=== PATIENT | female | born 1995 | race Caucasian/White ===

== ENCOUNTER 2022-01-14 00:01 | Inpatient (IN) | payer OTHER ==
--- NOTE | 2022-01-14 04:50 | NUR ---
0110 COVID 19 SWAB DONE TO BOTH NARES AND SENT TO IN HOUSE LAB.
--- NOTE | 2022-01-15 11:40 | PR ---
[facility] [address] [facility] [place], [place] [address] Signed Progress Notes IP Datetime Report Generated by CPN: 01/15/2022 11:40 PROGRESS NOTES: [id number] VITAL SIGNS: [id number] Vital Signs: Reviewed VS Notable Details: Few slightly elevated BPs; will monitor EXAM: [id number] Dilatation: 0.0 Effacement: 50 Station: -1 Contractions: Irregular; nontender MEMBRANES: [id number] Comments: Pt seen and evaluated. No cervical change on recheck. Reviewed options for continued EIOL vs discharge home. Pt desires discharge home w/ routine OB f/u next week. Reviewed labor precautions and indications for return to [facility]. FETUS A: [id number] FHR Baseline: 140 Variability: Moderate 6-25bpm Accelerations: 15X15 Decelerations: None FHR Category: Category I Presentation: Vertex Comments on Fetus A: No evidence of metabolic acidosis FETUS B: [id number] Signing Physician: Frida Bertrand DO Copies: ~ *Electronically Signed* 01/15/22 1140 FRIDA BERTRAND DO PATIENT NAME: LUCHO CHRISTOPHER PROGRESS NOTE DATE OF : [birth year] PHYSICIAN: FRIDA BERTRAND DO RPT #: [id number] REPORT IS CONFIDENTIAL AND NOT TO BE RELEASED WITHOUT AUTHORIZATION
== END 2022-01-15 11:30 | disposition home or self-care (01) | DRG 833 ==
LOC: FBC 00:01
PROVIDERS: ADMIT Obstetrics & Gynecology; ATTEND Obstetrics & Gynecology
PROC: 3E033VJ Introduction of Other Hormone into Peripheral Vein, Percutaneous Approach (ICD-10-PCS; principal; 2022-01-14)
DX: O62.2 Other uterine inertia (principal); Z20.822 Contact with and (suspected) exposure to COVID-19; Z3A.39 39 weeks gestation of pregnancy; R03.0 Elevated blood-pressure reading, without diagnosis of hypertension
CPT/HCPCS: 36415; 85027; 86850; 86900; 86901; 87502; U0003

== ENCOUNTER 2022-01-28 00:07 | Inpatient (IN) | payer OTHER ==
--- NOTE | 2022-01-28 10:44 | PR ---
[facility] [address] [place], [place] [address] Signed Progress Notes IP Datetime Report Generated by GWENDOLYN: 01/28/2022 10:44 PROGRESS NOTES: [id number] Impression: Reassuring Heart Rate Procedures: Sterile Vag Exam Plan: Augmentation Informed Consent Obtain: Section Delivery; Induction of Labor; Risks, Benefits and Alternatives Discussed VITAL SIGNS: [id number] Vital Signs: Reviewed; Within Normal Limits VS Notable Details: Few slightly elevated BPs; will monitor EXAM: [id number] Dilatation: 0.0 Effacement: 70 Station: -2 Contractions: q 1 min; nonpainful MEMBRANES: [id number] Amniotic Fluid Color: Clear Comments: Pt seen and examined. Cx continued closed. Pt frustrated w/ lack of progress. Reviewed EFW, cx, induction / augmentation of labor. Pt strongly considering primary C/S by maternal request. Discussed medical indications for and recommended trail of labor w/ pitocin augmentation. Pt and will discuss. FETUS A: [id number] FHR Baseline: 125 Variability: Moderate 6-25bpm Accelerations: 15X15 Decelerations: Late FHR Category: Category II Presentation: Vertex Comments on Fetus A: No evidence of metabolic acidosis FETUS B: [id number] Signing Physician: Frida Bertrand DO Copies: ~ *Electronically Signed* 01/28/22 1044 FRIDA BERTRNAD DO PATIENT NAME: LUCHO CHRISTOPHER PROGRESS NOTE DATE OF : 97 PHYSICIAN: FRIDA BERTRAND DO RPT #: [id number] REPORT IS CONFIDENTIAL AND NOT TO BE RELEASED WITHOUT AUTHORIZATION
--- NOTE | 2022-01-28 12:13 | PR ---
[facility] [address] [place], [place] [address] Signed Progress Notes IP Datetime Report Generated by GWENDOLYN: 01/28/2022 12:13 PROGRESS NOTES: [id number] Impression: Reassuring Heart Rate Other Impressions: intolerance to labor Procedures: Sterile Vag Exam Plan: Deliver- Section Informed Consent Obtain: Section Delivery; Risks, Benefits and Alternatives Discussed VITAL SIGNS: [id number] Vital Signs: Reviewed; Within Normal Limits VS Notable Details: Few slightly elevated BPs; will monitor EXAM: [id number] Dilatation: 0.0 Effacement: 70 Station: -2 Contractions: q 1 min; nonpainful MEMBRANES: [id number] Amniotic Fluid Color: Clear Comments: Pt seen and evaluated. Pt elected for trial of pitocin, but shortly after initation of pitocin pt w/ prolonged deceleration. Pitocin was stopped. Discussed w/ pt and ; Given remote from delivery, intolerance to contractions, we discussed options and pt would like to proceed with primary LTCS. Risks benefits and alternatives discussed in detail. Pt understands and would like to proceed. OR crew notified. Ancef 2 g and Azithromicin 500mg IV preop. Consents signed. All questions answered. FETUS A: [id number] FHR Baseline: 125 Variability: Moderate 6-25bpm Accelerations: 15X15 Decelerations: Late FHR Category: Category II Presentation: Vertex Comments on Fetus A: No evidence of metabolic acidosis FETUS B: [id number] Signing Physician: Frida Bertrand DO *Electronically Signed* 01/28/22 1213 FRIDA BERTRAND DO PATIENT NAME: LUCHO CHRISTOPHER JESUS PROGRESS NOTE DATE OF : 97 PHYSICIAN: FRIDA BERTRAND DO RPT #: [id number] REPORT IS CONFIDENTIAL AND NOT TO BE RELEASED WITHOUT AUTHORIZATION
--- NOTE | 2022-01-28 13:29 | NUR ---
01/28/22 1329 Elizabeth Hernández 1322 PATIENT INTO ROOM 106. PATIENT IS ALERT AND ORIENTED. PATIENT DENIES ANY PAIN OR NAUSEA. BREATHING EQUAL AND UNLABORED. OXYGEN SATURATIONS 95% ON ROOM AIR. FUNDAL MASSAGE COMPLETE. SPINAL LEVEL CHECKED. IVF INFUSING WITH 20 OF PIT. LEFT HAND 18 GAUAGE PATENT. BABY ON CHEST.
--- NOTE | 2022-01-29 12:31 | PR ---
[facility] [address] [facility] [address] [place], [place] [address] Signed PP Progress Notes Datetime Report Generated by CPN: 01/29/2022 12:31 SUBJECTIVE: [id number] Pain: Within Normal Limits Nausea/Vomiting: Denies Flatus: Yes Bowel Movement: No Vital Signs: [id number] Vital Signs: Reviewed; Within Normal Limits EXAM: Ongoing Cardiovascular: Normal Respiratory: Normal Abdomen/Uterus: Normal Lochia: Normal Vulva/Perineum: Not Done Breasts: Not Done CVA Tenderness: Normal Extremities: Normal Incision: Normal Progress: Normal Exam Comments: Fundus firm U-2 nontender. Incision well healing IMPRESSION/PLAN/PROCEDURES: [id number] Impression: Normal Progression Plan: Continue Present Management Progress Notes: Pt seen and examined. Doing well. Ambulating, voiding, and tolerating full diet. Pain and lochia minimal. well. No fevers/chills or other concerns. Anticipate d/c home tomorrow. Hgb 10.3. Signing Physician: Frida Bertrand DO Copies: ~ *Electronically Signed* 01/29/22 1231 FRIDA BERTRAND DO PATIENT NAME: LUCHO CHRISTOPHER PROGRESS NOTE DATE OF : 97 PHYSICIAN: FRIDA BERTRAND DO RPT #: [id number] REPORT IS CONFIDENTIAL AND NOT TO BE RELEASED WITHOUT AUTHORIZATION
--- NOTE | 2022-01-30 11:09 | PR ---
[facility] [address] [place], [place] [address] Signed PP Progress Notes Datetime Report Generated by CPN: 01/30/2022 11:09 SUBJECTIVE: [id number] Pain: Within Normal Limits Nausea/Vomiting: Denies Flatus: Yes Bowel Movement: No Vital Signs: [id number] Vital Signs: Reviewed Notable Details: One episode of tachy; will recheck EXAM: Met Cardiovascular: Normal Respiratory: Normal Abdomen/Uterus: Normal Lochia: Normal Vulva/Perineum: Not Done Breasts: Not Done CVA Tenderness: Normal Extremities: Normal Incision: Normal Progress: Normal Exam Comments: Fundus firm u-2 nontender. Incision healing well w/ sarah in place IMPRESSION/PLAN/PROCEDURES: [id number] Impression: Normal Progression Plan: Remove Sarah; Discharge Progress Notes: Pt seen and examined. Doing well. Ambulating, voiding, and tolerating full diet. Pain and lochia minimal. well. No fever/chills or other concerns. No lightheadeness / dizziness. Episode of asymptomatic tachycardia this morning; will monitor. Desires d/c home. Reviewed d/c instructions in detail. Planning micronor for contraception. [place] out now. F/U 2 wks. Signing Physician: Frida Bertrand DO Copies: ~ *Electronically Signed* 01/30/22 5400 FRIDA BERTRAND DO PATIENT NAME: LUCHO CHRISTOPHER PROGRESS NOTE DATE OF : 97 PHYSICIAN: FRIDA BERTRAND DO RPT #: [id number] REPORT IS CONFIDENTIAL AND NOT TO BE RELEASED WITHOUT AUTHORIZATION
--- NOTE | 2022-02-01 20:24 | OR ---
[facility] [address] [place] [id number] Signed DATE OF OPERATION: 01/28/2022 SURGEON: Frida Bertrand DO PREOPERATIVE DIAGNOSES: 1. Intrauterine at 41 weeks gestation. 2. Uterine intolerance of labor, remote from delivery. 3. section by maternal request. POSTOPERATIVE DIAGNOSES: 1. Intrauterine at 41 weeks gestation. 2. Uterine intolerance of labor, remote from delivery. 3. section by maternal request. 4. OP position. 5. Nuchal cord x2 tight. PROCEDURE PERFORMED: Primary low transverse delivery. ANESTHESIA: Spinal. PLAY[employer] TECHNICIAN: Varsha Byrd DO ESTIMATED BLOOD LOSS: 500 mL. COMPLICATIONS: None. DRAINS: Gill to gravity. FINDINGS: Delivery of viable male , 7 pounds 2 ounces with Apgars of 9 and 9, born in the LOP position via primary low transverse delivery. Nuchal cord x2 tight. Normal uterus, tubes, ovaries and placenta. INDICATIONS: Electronically Signed By: FRIDA BERTRAND DO 02/01/222023 PATIENT NAME: LUCHO CHRISTOPHER OPERATIVE REPORT DATE OF : [birth year] REPORT #: [id number] PHYSICIAN: FRIDA BERTRAND DO PCP: NO PRIMARY CARE PHYSICIAN REPORT IS CONFIDENTIAL AND NOT TO BE RELEASED WITHOUT AUTHORIZATION [address] [address] Signed Ms. Christopher is a very pleasant 26-year-old, G1, P0, with intrauterine at 41 weeks one day gestation, who presents to Labor and Delivery for medical induction of labor. She had previously undergone attempted and failed elective induction of delivery at 39 weeks gestation. otherwise uncomplicated. She was admitted and received a dose of Cytotec and had spontaneous rupture of membranes. Cervix remained closed throughout. had several unexplained prolonged decelerations, but eventually Pitocin was able to be started shortly thereafter baby developed another prolonged deceleration. Pitocin was stopped and options were discussed with the patient who requests primary low-transverse delivery. Risks, benefits, and alternatives were discussed in detail with the patient. The patient understands and wishes to proceed with procedure. PROCEDURE IN DETAIL: The patient was taken to the operating room where a time-out was performed to confirm correct patient, correct procedure. Spinal anesthetic was adequately established. The patient was prepped and draped in the supine position with a bump under the right hip. Gill catheter was inserted and the patient received Ancef 2 g as well as azithromycin 500 mg IV preoperatively. Heparin was not indicated. After spinal was noted to be adequate, a Pfannenstiel skin incision was made approximately 2 cm above the pubic incisions. Incision was carried down to the fascia which was nicked in the midline. Fascial incision was extended bilaterally using curved Hilliard scissors. Fascia was grasped with Erik's, elevated, and the underlying rectus muscles dissected off bluntly and sharply. The rectus was divided in the midline. Peritoneum was entered bluntly and peritoneal incision was extended cephalad, caudad using blunt and sharp dissection. Rich self retractor was placed after ensuring no abdominal or pelvic adhesions. The lower uterine segment was identified and hysterotomy was performed using a surgical scalpel. Clear fluid was noted. Hysterotomy was extended bilaterally using blunt dissection. The surgeon's hand was then placed in the uterine cavity and the head gently elevated into the abdomen and noted to be in the LOP position. Nuchal cord x2 tight was noted. The was delivered with the assistance of fundal pressure without difficulty. Nuchal cords were reduced. The cord was doubly clamped and cut and the handed to the waiting pediatric team for further care. was vigorous and cried at delivery. Cord blood was obtained for routine analysis. The placenta was then manually expressed, intact with a centrally inserted three-vessel cord. The uterine cavity was cleared of any remaining products of conception or clot. The patient received Pitocin per protocol. Hysterotomy was then closed in two layers using 0-Monocryl. The first being a running locked layer and the second being an imbricating layer in a vertical manner. The pelvis was irrigated and made hemostatic with judicious use of Bovie electrocautery. Normal tubes and ovaries were appreciated. After ensuring that the pelvis was hemostatic, and the Rich retractor was removed, the peritoneum was closed using 2-0 Vicryl in a running nonlocked manner. The rectus was made hemostatic with judicious use of Bovie electrocautery and plicated in the midline with three Electronically Signed By: FRIDA BERTRAND DO 02/01/222023 PATIENT NAME: LUCHO CHRISTOPHER OPERATIVE REPORT DATE OF : 97 REPORT #: [id number] PHYSICIAN: FRIDA BERTRAND DO PCP: NO PRIMARY CARE PHYSICIAN REPORT IS CONFIDENTIAL AND NOT TO BE RELEASED WITHOUT AUTHORIZATION [facility] [address] [place], [place] [address] Signed interrupted sutures of 0 Vicryl. Fascia was then reapproximated using 0 Vicryl in a running nonlocked manner. Subcu was evaluated and made hemostatic with judicious use of Bovie electrocautery and one interrupted suture of a bleeding vessel. Once hemostasis was appreciated. Subcu was reapproximated using 3-0 Vicryl in a running nonlocked manner. Skin was reapproximated using surgical urbano. The uterus was Crede'd for scant blood and the patient was taken to the PACU in good and stable condition. Sponge, needle, and instrument count were correct x2 at the end of the procedure. Dr. Byrd was present and participated in all portions of procedure. Frida Bertrand DO JDW/MODL /[id number] Copies: ~ Electronically Signed By: FRIDA BERTRAND DO 02/01/222023 PATIENT NAME: LUCHO CHRISTOPHER OPERATIVE REPORT DATE OF : 97 REPORT #: [id number] PHYSICIAN: FRIDA BERTRAND DO PCP: NO PRIMARY CARE PHYSICIAN REPORT IS CONFIDENTIAL AND NOT TO BE RELEASED WITHOUT AUTHORIZATION
== END 2022-01-30 13:10 | disposition home or self-care (01) | DRG 788 ==
LOC: FBC 00:07
PROVIDERS: ADMIT Obstetrics & Gynecology; ATTEND Obstetrics & Gynecology
PROC: 10D00Z1 Extraction of Products of Conception, Low, Open Approach (ICD-10-PCS; principal; 2022-01-28 12:00)
DX: O48.0 Post-term pregnancy (principal); O76 Abnormality in fetal heart rate and rhythm complicating labor and delivery; O69.1XX0 Labor and delivery complicated by cord around neck, with compression, not applicable or unspecified; O64.0XX0 Obstructed labor due to incomplete rotation of fetal head, not applicable or unspecified; Z37.0 Single live birth; Z3A.41 41 weeks gestation of pregnancy; R00.0 Tachycardia, unspecified; Z79.899 Other long term (current) drug therapy
CPT/HCPCS: 36415; 85027; 86850; 86900; 86901; A9270; J0456; J0690; J1650; J1885; J2001; J2274; J2405; J2590; J3010; J3105

== ENCOUNTER 2024-04-13 12:06 | Inpatient (IN) | payer OTHER ==
[~2024-04-13] VITALS: Ht 167.6 cm; Wt 77.1 kg
[2024-04-30] MEDS ORDERED: LACTATED RINGER'S 1,000 ML IV PRN (05:15)
[2024-04-30] MEDS ORDERED: SOD+POT BICARB/CITRIC ACID 2 EA TABLET.EFF PO ONE ×2 (05:15→05:45)
[2024-04-30 05:40] LABS: AMPHETAMINES, URINE NEGATIVE (NEGATIVE); BARBITURATES, URINE NEGATIVE (NEGATIVE); BENZODIAZEPINE, URINE NEGATIVE (NEGATIVE); BUPRENORPHINE, URINE NEGATIVE (NEGATIVE); CANNABINOID, URINE NEGATIVE (NEGATIVE); COCAINE, URINE NEGATIVE (NEGATIVE); ECSTASY, URINE NEGATIVE (NEGATIVE); FENTANYL, URINE NEGATIVE (NEGATIVE); METHADONE, URINE NEGATIVE (NEGATIVE); OPIATES, URINE NEGATIVE (NEGATIVE); OXYCODONE, URINE NEGATIVE (NEGATIVE); PHENCYCLIDINE, URINE NEGATIVE (NEGATIVE)
[2024-04-30 05:51] LABS: HEMATOCRIT 34.4 % (35.0-50.0); HEMOGLOBIN 11.9 g/dL (12.0-18.0); MCH 29.7 (27-36); MCHC 34.7 g/dl (30-36); MCV 85.6 fl (81-99); RBC 4.02 M/ul (4.3-5.7); RDW 15.1 (10.5-15.0)
[2024-04-30 06:27] LABS: ABO O; ANTIBODY SCREEN NEGATIVE; RH POSITIVE
[2024-04-30] MEDS ORDERED: DEXAMETHASONE SOD PHOS 4 MG/ML VIAL ONE ×2 (06:59→07:16)
[2024-04-30] MEDS ORDERED: BUPIVACAINE 0.75% IN DEXTROSE 2 ML AMP ONE (06:59)
[2024-04-30] MEDS ORDERED: ondansetron HCL 4 MG/2 ML VIAL ONE (06:59)
[2024-04-30] MEDS ORDERED: LIDOCAINE HCL 2% 5 ML SDV ONE (06:59)
[2024-04-30] MEDS ORDERED: CEFAZOLIN SODIUM 2 GM/20 ML SYR IV SCH (07:00)
[2024-04-30] MEDS ORDERED: OXYTOCIN 10 UNITS/ML VIAL ONE (07:03)
[2024-04-30] MEDS ORDERED: fentaNYL citrate 100 MCG/2 ML VIAL ONE (07:06)
[2024-04-30] MEDS ORDERED: MORPHINE SULFATE 1 MG/ML VIAL ONE (07:07)
[2024-04-30] MEDS ORDERED: Ropivacaine HCl 0.5% 30 ML VIAL ONE (07:15)
[2024-04-30] MEDS ORDERED: SODIUM CHLORIDE 0.9% 20 ML IV ONE (07:15)
[2024-04-30] MEDS ORDERED: dexmedeTOMIDine HCl 200 MCG/2 ML VIAL ONE (07:16)
[2024-04-30] MEDS ORDERED: ePHEDrine sulfate 50 MG/ML AMP ONE (07:43)
[2024-04-30] MEDS ORDERED: HYDROmorphone HCL 1 MG/ML SYR IV PRN (08:30)
[2024-04-30] MEDS ORDERED: fentaNYL citrate 50 MCG/ML SDV IV PRN (08:30)
[2024-04-30] MEDS ORDERED: KETOROLAC TROMETHAMINE 30 MG/ML VIAL IV PRN ×2 (08:30)
[2024-04-30] MEDS ORDERED: diphenhydrAMINE HCL 50 MG/ML VIAL IV PRN ×2 (08:30)
[2024-04-30] MEDS ORDERED: ondansetron HCL 4 MG/2 ML VIAL IV PRN ×2 (08:30)
[2024-04-30] MEDS ORDERED: IBLOOD GLUCOSE TEST STRIP 1 EA TEST VI PRN (08:30)
[2024-04-30] MEDS ORDERED: NALOXONE HCL 0.4 MG SYR IV PRN ×2 (08:30)
[2024-04-30] MEDS ORDERED: PROMETHAZINE HCL 25 MG TAB PO PRN (09:15)
[2024-04-30] MEDS ORDERED: OXYTOCIN/0.9 % SODIUM CHLORIDE 500 ML IV SCH (09:15)
[2024-04-30] MEDS ORDERED: PROMETHAZINE HCL 25 MG SUPP PR PRN (09:15)
[2024-04-30] MEDS ORDERED: OXYCODONE HCL 5 MG TAB PO PRN (09:15)
[2024-04-30] MEDS ORDERED: HYDROCODONE/ACETA 5/325 TAB PO PRN (09:15)
[2024-04-30] MEDS ORDERED: PROCHLORPERAZINE EDISYLATE 10 MG/2 ML VIAL IV PRN (09:15)
[2024-04-30] MEDS ORDERED: bisacodyL 10 MG SUPP PR PRN (09:15)
[2024-04-30] MEDS ORDERED: OXYCODONE/APAP 5/325 TAB PO PRN (09:15)
[2024-04-30] MEDS ORDERED: METOCLOPRAMIDE HCL 10 MG/2 ML SDV IV PRN (09:15)
[2024-04-30] MEDS ORDERED: LACTATED RINGER'S 1,000 ML IV SCH (09:15)
[2024-04-30 09:20] VITALS: BP 103/53
--- NOTE | 2024-04-30 09:28 | NUR ---
04/30/24 0928 Kathie Mullins 0133 PT ARRIVED TO ROOM WITH AT BEDSIDE. VSS. PT STARTING TO MOVE RIGHT LEG. IV IN LEFT HAND WNL AND INFUSING LR WITH 25 PIT. ALL QUESTIONS ANSWERED. 09 REPORT GIVEN TO [facility] RN. BABY TO CHEST AND BED PLUGGED IN AND CALL LIGHT GIVEN. PT RESTING IN BED AND REPORT 2/10 PAIN AND NO NAUSEA. PLAN OF CARE DISCUSSED.
[2024-04-30] MEDS ORDERED: SIMETHICONE 125 MG TABLET CHEWABLE PO SCH (11:00)
[2024-04-30] MEDS ORDERED: KETOROLAC TROMETHAMINE 30 MG/ML VIAL IV SCH (14:00)
[2024-04-30] MEDS ORDERED: ENOXAPARIN SODIUM 40 MG/0.4 ML SYR SUB-Q SCH (16:00)
[2024-04-30] MEDS ORDERED: SENNOSIDES/DOCUSATE 1 EA TAB PO SCH (21:00)
[2024-05-01] MEDS ORDERED: LACTATED RINGER'S 1,000 ML IV SCH (05:00)
[2024-05-01 05:38] LABS: HEMATOCRIT 27.6 % (35.0-50.0); HEMOGLOBIN 9.8 g/dL (12.0-18.0); MCH 29.9 (27-36); MCHC 35.4 g/dl (30-36); MCV 84.5 fl (81-99); RBC 3.26 M/ul (4.3-5.7); RDW 14.7 (10.5-15.0)
[2024-05-01] MEDS ORDERED: ondansetron HCL 4 MG/2 ML VIAL IV PRN (08:30)
[2024-05-01] MEDS ORDERED: IBUPROFEN 600 MG TAB PO SCH (14:00)
[2024-05-01] MEDS ORDERED: ACETAMINOPHEN 325 MG TAB PO ONE (22:45)
[2024-05-02] MEDS ORDERED: ACETAMINOPHEN 500 MG TAB PO PRN (08:30)
== END 2024-05-02 12:10 | disposition home or self-care (01) | DRG 787 ==
LOC: FBC 04-30 04:56
PROVIDERS: ADMIT Obstetrics & Gynecology; ATTEND Obstetrics & Gynecology
PROC: 10D00Z1 Extraction of Products of Conception, Low, Open Approach (ICD-10-PCS; principal; 2024-04-30 07:30)
DX: O34.211 Maternal care for low transverse scar from previous cesarean delivery (principal); D62 Acute posthemorrhagic anemia; Z3A.39 39 weeks gestation of pregnancy; Z37.0 Single live birth; O90.81 Anemia of the puerperium
CPT/HCPCS: 01961; 36415; 76942; 80307; 85027; 86850; 86900; 86901; A9270; J0690; J1100; J1650; J1885; J2274; J2405; J2590; J2795; J3010; J7121